=== PATIENT | male | born 1955 | race Caucasian/White ===

== ENCOUNTER 2017-07-18 02:50 | Inpatient (IN) ==
[2017-07-18] MEDS ORDERED: Naloxone 0.4 MG/ML INJ IVP PRN (05:08)
[2017-07-18] MEDS ORDERED: Acetaminophen 325 MG TABLET PO PRN (05:08)
[2017-07-18 05:41] LABS: Basophils % 0.3 %; Hematocrit 27.2 % (37.5-50.1); Hemoglobin 8.5 g/dL (12.9-16.9); Immature Granulocytes % 0.4 % (0-4); Lymphocytes # 0.1 K/mcL (0.6-4.6); Mean Corpuscular HGB Conc 31.3 g/dL (31.6-35.5); Mean Corpuscular Hemoglobin 24.6 pg (28.0-33.3); Mean Corpuscular Volume 78.8 fL (83.0-100.0); Mean Platelet Volume 9.8 fL (9.4-12.4); Monocytes # 0.2 K/mcL (0.0-1.3); Monocytes % 2.5 %; Neutrophils # 6.8 K/mcL (1.6-8.9); Platelet Count 224 K/mcL (140-400); Red Blood Count 3.45 M/mcL (4.19-5.50); Red Cell Distribution Width 22.3 % (11.5-14.5); Segmented Neutrophils % 95.8 %
[2017-07-18] MEDS ORDERED: Vancomycin 1,000 MG in D5% in Water 250 ML IVPB SCH (06:00)
[2017-07-18] MEDS ORDERED: Cefepime HCl 1,000 MG in Water for inj. (sterile) 20 ML 10 ML IVPB SCH (06:00)
[2017-07-18] MEDS ORDERED: *HR* LORazepam 0.5 MG TABLET PO PRN (06:02)
--- NOTE | 2017-07-18 06:07 | Internal Med History&Physical ---
Date of Encounter: 07/18/17 Time of Encounter: 05:30 Assessment and Plan (1) Sepsis Current visit: Yes Status: Acute Will admit the pt into Tele He does meet sepsis criteria with tachycardia, slightly elevated LA, and source of as PNA Will start him on broad spec abx Cefepime + Levaquin + Vanco Duoneb + O2 He did recieved IV fluids in the ER since he does have some crackles will stop IVF for now sent for sputum cx, Strep PNA, Legionella and Resp viral panel Qualifiers: Qualified Code(s): A41.9 - Sepsis, unspecified organism (2) Acute respiratory failure with hypoxia Current visit: Yes Status: Acute try to wean him off the O2 as he tolerates may need home O2 eval cont duoneb ++ Steroids (3) COPD with acute exacerbation Current visit: Yes Status: Acute (4) Pneumonia Current visit: Yes Status: Acute Mostly bacterial Reviewed CXR by myself - showed patchy infiltrates in b/l lower lobes. Inc vascular congestion noticed on broad spec abx Qualifiers: Pneumonia type: due to unspecified organism Laterality: bilateral Lung location: lower lobe of lung Qualified Code(s): J18.9 - Pneumonia, unspecified organism (5) Atrial fibrillation with RVR Current visit: No Status: Acute Reviewed his EKG from [place] [facility] showed Afib with RVR also have flutter waves Repeated EKG here showed NSR with HR 91, few PVC's noticed will get 2 D Echo Will start him on low dose Metoprolol 25 BID His CHADVASC2 score is very high with previous h/o CVA, so started him on Heparin gtt now Will consult Card in AM (6) Elevated troponin Current visit: No Status: Acute slightly elevated mostly demand ischemia cont close monitoring (7) CAD (coronary artery disease) Current visit: Yes Status: Acute will obtain his home med list and resume all home meds Qualifiers: Coronary Disease-Associated Artery/Lesion type: [place] artery Associated angina: without angina Qualified Code(s): I25.10 - Atherosclerotic heart disease of [place] coronary artery without angina pectoris (8) H/O: CVA (cerebrovascular accident) Current visit: Yes Status: Acute (9) Tobacco dependence Current visit: Yes Status: Acute counseled to quit smoking Internal Medicine - H&P: HPI Chief complaint: Cough, SOB Admitted From: Emergency Dept Plans for Post Hospital Care: Home History of present illness: Mr. Carmen is a 62 year old male with known PMH of CAD s/p stents x 7, CVA x2, Esophageal Ca, Throat cancer recently finished chemo therapy, who also had s/p AAA repair, pt presented to [facility] [facility] with four-day history of fever, chills, cough, difficulty breathing. He states he is coughing up purulent sputum. He has had fever and chills. He has had a cough with wheezing. No chest pain. No abdominal pain. He has had body aches. No vomiting or diarrhea. He normally smokes half a pack a day. While he was in the ER, he went into A fib with RVR which got converted to NSR right away with Cardizem bolus + short duration of cardizem gtt + Digoxin. Pt happened to have b/l pneumonia for which he received IV abx and transferred to our hospital for further care. Pt is currently on 2 lit O2, feels little better now. Past Med Surg Social Fam HX - Past Medical History Medical history: aortic aneurysm, cancer, myocardial infarction Psychiatric history: anxiety, depression - Social History Smoking Status: Current every day smoker Packs per day: 2 Smokeless Tobacco Status: Yes (vapor cig.) Alcohol use: occasionally Drug use: none Internal Medicine - H&P: Meds ALPRAZolam [Xanax 0.5 MG Tablet] 0.5 mg PO BID 07/17/17 [History] Amoxicillin 875 mg PO Q12H 07/17/17 [History] Escitalopram [Lexapro] 20 mg PO DAILY 07/17/17 [History] Fludrocortisone Acetate [Florinef] 0.1 mg PO DAILY 07/17/17 [History] Midodrine [ProAmatine] 10 mg PO BID 07/17/17 [History] Ticagrelor [Brilinta] 90 mg PO BID 07/17/17 [History] lamoTRIgine [Lamictal] 25 mg PO TID 07/17/17 [History] 3 Allergy/AdvReac Type Severity Reaction Status Date / Time No Known Allergies Allergy Verified 07/17/17 23:11 All Systems PM: A 10-system review of systems was performed and is negative for pertinent findings except as documented above in the HPI. Review of systems: Reviewed all the systems everything is benign except the systems and symptoms I mentioned in HPI - Constitutional Vitals: Temp Pulse Resp BP Pulse Ox 98.5 F 102 18 116/78 98 07/18/17 04:27 07/18/17 04:27 07/18/17 04:27 07/18/17 04:27 07/18/17 04:27 General appearance: Present: cooperative, mild distress, A&O X 3, answers questions appropriately - Head Head exam: Present: atraumatic, normal inspection - Neck Neck exam general surgery: Present: supple - Respiratory Respiratory exam: Present: decreased breath sounds, respiratory distress (mild) , rhonchi (coarse), wheezes (moderate). Absent: rales - Cardiovascular Cardiovascular exam: Present: RRR, +S1, +S2. Absent: systolic murmur, tachycardia - GI/Abdominal GI/Abdominal exam: Present: normal bowel sounds, soft. Absent: rebound, rigid, tenderness - Extremities Exam Extremities exam: Absent: calf tenderness, pedal edema, tenderness - Back Exam Back exam: Absent: CVA tenderness (L), CVA tenderness (R) - Neurological Exam Neurological exam: Present: alert, oriented X3, no focal deficits - Psychiatric Psychiatric exam: Present: normal affect, normal mood - Skin Skin exam: Absent: rash Internal Med - H&P Results - Labs CBC & Chem 7: 07/18/17 05:19 Labs: Short CBC 07/18/17 Range/Units 05:19 WBC 7.1 (4.3-11.1) K/mcL Hgb 8.5 L (12.9-16.9) g/dL Hct 27.2 L (37.5-50.1) % Plt Count 224 (140-400) K/mcL Cardiac Enzymes 07/18/17 Range/Units 05:19 Troponin I 0.06 H* (< 0.04) ng/mL
[2017-07-18 06:12] LABS: Anisocytosis 3+ (Not Present); Microcytosis Present (Not Present); Platelet Estimate Normal (Normal)
[2017-07-18 06:16] LABS: Alanine Aminotransferase 11 Units/L (7-52); Albumin/Globulin Ratio 0.8 (1.1-2.2); Alkaline Phosphatase 134 Units/L (34-104); Aspartate Amino Transferase 22 Units/L (13-39); BUN/Creatinine Ratio 12 (6-26); Bilirubin,Total 1.2 mg/dL (0.3-1.0); Blood Urea Nitrogen 7 mg/dL (8-23); Calcium 7.8 mg/dL (8.6-10.3); Carbon Dioxide 24 mEq/L (23-29); Chloride 105 mEq/L (98-107); Chol/HDL Ratio 2.2 (0-4.9); Cholesterol 103 mg/dL (< 200); Globulin 3.6 g/dL (2.4-3.5); Glucose 157 mg/dL (70-105); HDL Cholesterol 46 mg/dL (40-59); LDL Cholesterol,Calculated 48 mg/dL (0-99); Magnesium 1.6 mg/dL (1.6-2.6); Osmolality,Calculated 279 (280-300); Potassium 4.2 mEq/L (3.5-5.1); Sodium 134 mEq/L (136-145); Total Protein 6.6 g/dL (6.4-8.9); Triglycerides 46 mg/dL (< 150); eGFR For African Americans > 60 (> 60); eGFR For Non-African Americans > 60 (> 60)
[2017-07-18] MEDS: Ipratropium/Albuterol Neb 3 ML IH SCH ×5 (07:47→23:42)
[2017-07-18] MEDS: MethylPREDNISolone 40 MG/ML VIAL IVP SCH ×3 (08:01→17:52)
[2017-07-18] MEDS: Vancomycin 1,000 MG in D5% in Water 250 ML IVPB SCH ×2 (08:02→19:42)
[2017-07-18] MEDS: Aspirin Enteric Coated 81 MG Tablet PO SCH (08:06)
[2017-07-18] MEDS: Cefepime HCl 1,000 MG in Water for inj. (sterile) 20 ML 10 ML IVP SCH ×2 (08:07→09:31)
[2017-07-18] MEDS: Levofloxacin 500 MG/100 ML 500 MG/100 ML BAG IVPB SCH (08:12)
[2017-07-18 09:18] LABS: Adenovirus Not Detected (Not Detect); Bordetella Pertussis Not Detected (Not Detect); Chlamydophila pneumoniae Not Detected (Not Detect); Coronavirus 229E Not Detected (Not Detect); Coronavirus HKU1 Not Detected (Not Detect); Coronavirus NL63 Not Detected (Not Detect); Coronavirus OC43 Not Detected (Not Detect); Human Metapneumovirus Not Detected (Not Detect); Human Rhinovirus/Enterovirus Not Detected (Not Detect); Influenza A Subtype 2009 H1 Not Detected (Not Detect); Influenza A Untypeable Not Detected (Not Detect); Influenza B Not Detected (Not Detect); Mycoplasma pneumoniae Not Detected (Not Detect); Parainfluenza Virus 1 Not Detected (Not Detect); Parainfluenza Virus 2 Not Detected (Not Detect); Parainfluenza Virus 3 Not Detected (Not Detect); Parainfluenza Virus 4 Not Detected (Not Detect); Respiratory Syncytial Virus Not Detected (Not Detect)
[2017-07-18 09:29] LABS: INR 1.3; Prothrombin Time 13.6 Seconds (9.4-12.1)
[2017-07-18 09:31] LABS: Activated Partial Thrombo Time 31.1 Seconds (26.0-36.0)
[2017-07-18] MEDS: Heparin 25,000 UNIT/500 ML D5W 25,000 UNIT/500 ML BAG IVC SCH (10:09)
[2017-07-18] MEDS: Nicotine 14 MG PATCH.TD24 TD SCH (11:32)
--- NOTE | 2017-07-18 12:26 | Cardiology Consult Note ---
Date of Encounter: 07/18/17 Time of Encounter: 12:06 Assessment and Plan (1) Atrial fibrillation with RVR Current Visit: No Status: Acute ATrial fibrillation with RVR seen on admission. Converted to NSR with frequent PAC. Agree with metoprolol. In regards to anticoagulation, his CHADS VASc score is 4 (HTN, CVA2, CAD). Anticoagulation with coumadin or NOAC would be recommended. He is noted to have significant anemia. He denies bleeding. There are no previous labs to compare. Recommend ordering records from [facility] for review. He is also on brilinta and asa for multiple stents. He does not know when his last stent was placed. May need triple therapy. 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 Recommend checking stool guiac for anemia. (2) Elevated troponin Current Visit: No Status: Acute Mild troponin elevation 0.04, 0.05, 0.06 in the setting of PNA and atrial fibrillation with RVR. Likely demand ischemia. TTE pending. (3) CAD (coronary artery disease) Current Visit: Yes Status: Acute H/o multiple [place] and 7 cardiac stents. Continue asa, brilinta, and bb. Patient unsure why he is not on statin. Noted to have elevated total bilirubin, will hold for now. Qualifiers: Coronary Disease-Associated Artery/Lesion type: [place] artery [place] vs. transplanted heart: [place] heart Associated angina: without angina Qualified Code(s): I25.10 - Atherosclerotic heart disease of [place] coronary artery without angina pectoris Discussion w patient/family: The assessment and plan as outlined above was discussed with the patient and/or family members who expressed understanding and agreement. All questions were answered. Thank you for involving us in the care of your patient. Please call with any questions. History of Present Illness Consult date: 07/18/17 Requesting physician: Adelfo Holcomb Consult reason: afib with RVR Chief complaint: SOB, cough, wheezing History of present illness: Mr. Carmen is a 62 year old male with a past medical history of CAD s/p multiple MA, previous PCI, AAA repair in 2017, HTN, CVA, and COPD who presents with the c/o increasing SOB and cough. He is diagnosed with acute respiratory failure secondary to PNA and sepsis. Cardiology consulted for atrial fibrillation with RVR seen on admission. He is now NSR. Denies previous history of afib. Denies palpitations. As of note, the patient is a poor historian. He states that he moved here from [place], [place]. He was hospitalized at an OSH 2 weeks ago. He reports that his heart stopped and he received CPR. He states that he was also diagnosed with PNA at that time. He left AMA. Past Med Surg Social Fam HX - Past Medical History Attestation: Yes The following information was validated with the patient. Medical history: aortic aneurysm, cancer, COPD, coronary artery disease, hypertension, myocardial infarction Psychiatric history: anxiety, depression - Social History Smoking Status: Current every day smoker Packs per day: 2 Smokeless Tobacco Status: Yes (vapor cig.) Alcohol use: occasionally Drug use: none Medications and Allergies ALPRAZolam [Xanax 0.5 MG Tablet] 0.5 mg PO BID 07/17/17 [History] Escitalopram [Lexapro] 20 mg PO DAILY 07/17/17 [History] Fludrocortisone Acetate [Florinef] 0.1 mg PO DAILY 07/17/17 [History] Midodrine [ProAmatine] 10 mg PO BID 07/17/17 [History] Ticagrelor [Brilinta] 90 mg PO BID 07/17/17 [History] lamoTRIgine [Lamictal] 25 mg PO TID 07/17/17 [History] 3 Allergy/AdvReac Type Severity Reaction Status Date / Time No Known Allergies Allergy Verified 07/17/17 23:11 All Systems Review: A 10-system review of systems was performed and is negative for pertinent findings except as documented above in the HPI. Physical Examination Vital Signs, Last 4 Hours Temp Pulse Resp BP Pulse Ox 07/18/17 11:01 98.0 F 81 17 117/89 100 07/18/17 10:57 16 99 07/18/17 09:28 97 07/18/17 08:14 98.9 F 97 18 119/77 97 General: Conversant, No Apparent Distress HEENT: Atraumatic, Normocephaly, Mucus Membranes Moist Neck: No JVD, Normal carotid pulses Cardiac: Reg Rate and Rhythm, Normal S1 and S2, No Murmur Lungs: Other (Respirations slightly labored with conversation. Course expiratory wheezes. ) Neuro: Alert and responsive, No focal deficits noted Abdomen: Soft, Non-Tender Skin: No rashes noted on visualized skin Musculoskeletal: No Chest Wall Tenderness Extremities: No Clubbing, No Cyanosis, No Edema, Normal Pulses Results 07/18/17 05:19 07/18/17 05:19 Lab Results 07/18/17 07/18/17 07/18/17 05:19 05:19 05:19 WBC 7.1 Hgb 8.5 L Hct 27.2 L Plt Count 224 INR APTT Sodium 134 L Potassium 4.2 D Chloride 105 Carbon Dioxide 24 BUN 7 L Creatinine 0.58 L Glucose 157 H Calcium 7.8 L Magnesium 1.6 Total Bilirubin 1.2 H AST 22 ALT 11 Alkaline Phosphatase 134 H Troponin I 0.06 H* 07/18/17 09:06 WBC Hgb Hct Plt Count INR 1.3 APTT 31.1 Sodium Potassium Chloride Carbon Dioxide BUN Creatinine Glucose Calcium Magnesium Total Bilirubin AST ALT Alkaline Phosphatase Troponin I - Imaging and Cardiology Echo: pending - EKG Interpretation EKG results cardiology: personally reviewed Consult Discharge Plan - Plan Referrals: NONE,PCP [Primary Care Provider] -
[2017-07-18] MEDS ORDERED: *HR* Heparin 5,000 UNIT/ML VIAL IVP PRN (13:25)
[2017-07-18] MEDS ORDERED: *HR* LORazepam 2 MG/ML VIAL IVP PRN ×3 (13:29)
[2017-07-18] MEDS ORDERED: *HR* LORazepam 1 MG TABLET PO PRN (13:48)
[2017-07-18] MEDS: Thiamine (B-1) 100 MG TABLET PO SCH (14:14)
[2017-07-18] MEDS: Folic Acid 1 MG TABLET PO SCH (14:14)
[2017-07-18] MEDS ORDERED: lamoTRIgine 25 MG TABLET PO SCH (15:00)
--- NOTE | 2017-07-18 15:52 | Event Note ---
Date of Encounter: 07/18/17 Time of Encounter: 13:15 Patient is a 62y/o male admitted for sepsis secondary to PNA, COPD with acute exacerbation, Afib with RVR continue empiric abx, systemic steroids, bronchodilators, O2 supplementation, heparin gtt, rate control with BB pt reported history of everyday alcohol use (18-20beers daily). Will closely monitor for alcohol withdrawals. CIWA monitoring, Ativan prn alcohol withdrawal , folate, thiamine supplementation labs and vitals reviewed pt seen and examined at bedside. reports of improvement in respiratory status and saturating well on nasal cannula.
[2017-07-18] MEDS: *HR* Heparin 5,000 UNIT/ML VIAL IVP PRN (16:42)
[2017-07-18] MEDS: Cefepime HCl 2,000 MG in Water for inj. (sterile) 20 ML IVP SCH (17:51)
[2017-07-18] MEDS: lamoTRIgine 25 MG TABLET PO SCH (19:41)
[2017-07-18] MEDS: *HR* Ticagrelor 90 MG TABLET PO SCH (19:41)
[2017-07-19] MEDS: *HR* HYDROcodone/Acet 5/325 mg TABLET PO PRN ×2 (00:23→16:12)
[2017-07-19] MEDS: Ipratropium/Albuterol Neb 3 ML IH SCH ×5 (03:38→20:45)
[2017-07-19] MEDS: Cefepime HCl 2,000 MG in Water for inj. (sterile) 20 ML IVP SCH (05:04)
[2017-07-19] MEDS: MethylPREDNISolone 40 MG/ML VIAL IVP SCH ×2 (05:04→15:55)
[2017-07-19 06:15] LABS: Hematocrit 25.9 % (37.5-50.1); Immature Granulocytes % 0.8 % (0-4); Lymphocytes # 0.3 K/mcL (0.6-4.6); Mean Corpuscular HGB Conc 30.9 g/dL (31.6-35.5); Mean Corpuscular Hemoglobin 24.7 pg (28.0-33.3); Mean Corpuscular Volume 79.9 fL (83.0-100.0); Mean Platelet Volume 9.7 fL (9.4-12.4); Monocytes # 0.6 K/mcL (0.0-1.3); Monocytes % 6.8 %; Neutrophils # 8.3 K/mcL (1.6-8.9); Platelet Count 219 K/mcL (140-400); Red Blood Count 3.24 M/mcL (4.19-5.50); Red Cell Distribution Width 22.2 % (11.5-14.5); Segmented Neutrophils % 89.4 %
[2017-07-19 06:33] LABS: BUN/Creatinine Ratio 23 (6-26); Blood Urea Nitrogen 15 mg/dL (8-23); Calcium 8.3 mg/dL (8.6-10.3); Carbon Dioxide 26 mEq/L (23-29); Chloride 102 mEq/L (98-107); Glucose 145 mg/dL (70-105); Magnesium 1.9 mg/dL (1.6-2.6); Osmolality,Calculated 277 (280-300); Phosphorous 3.1 mg/dL (2.7-4.5); Potassium 4.5 mEq/L (3.5-5.1); Sodium 132 mEq/L (136-145); eGFR For African Americans > 60 (> 60); eGFR For Non-African Americans > 60 (> 60)
[2017-07-19] MEDS: Heparin 25,000 UNIT/500 ML D5W 25,000 UNIT/500 ML BAG IVC SCH ×2 (07:47→10:58)
[2017-07-19] MEDS ORDERED: Aminoglycoside Consult 1 EACH MC ONE (08:04)
[2017-07-19] MEDS: Vancomycin 1,000 MG in D5% in Water 250 ML IVPB SCH (08:26)
[2017-07-19] MEDS: Levofloxacin 500 MG/100 ML 500 MG/100 ML BAG IVPB SCH (08:27)
[2017-07-19] MEDS: Folic Acid 1 MG TABLET PO SCH (08:28)
[2017-07-19] MEDS: lamoTRIgine 25 MG TABLET PO SCH ×2 (08:28→20:26)
[2017-07-19] MEDS: Furosemide 20 MG/2 ML VIAL IVP SCH ×2 (08:28→15:55)
[2017-07-19] MEDS: *HR* Ticagrelor 90 MG TABLET PO SCH ×2 (08:28→20:26)
[2017-07-19] MEDS: Thiamine (B-1) 100 MG TABLET PO SCH (08:28)
[2017-07-19] MEDS: Metoprolol XL (24 HR) Succ 25 MG TAB.ER.24H PO SCH (08:29)
[2017-07-19] MEDS: Aspirin Enteric Coated 81 MG Tablet PO SCH (08:30)
--- NOTE | 2017-07-19 10:12 | Cardiology Progress Note ---
Date of Encounter: 07/19/17 Time of Encounter: 10:10 Assessment and Plan (1) CHF (congestive heart failure) Current Visit: Yes Status: Acute Acute on chronic systolic CHF. TTE reviewed. EF 35% with global systolic dysfunction. There is mild to moderate mitral regurgitation. Small pericardial effusion with no evidence of tampanode. EF previously 45% in 2015. Awaiting records from [facility] from recent hospital stay. Start IV lasix. CXR showed possible pulmonary edema verses PNA. BNP 3235. Strict I&O and daily weights. CHF education. Lopressor changed to toprol. Add aceI. Qualifiers: Heart failure type: systolic Heart failure chronicity: acute on chronic Qualified Code(s): I50.23 - Acute on chronic systolic (congestive) heart failure (2) Atrial fibrillation with RVR Current Visit: No Status: Inactive Atrial fibrillation with RVR seen on admission. Converted to NSR with frequent PAC. Agree with metoprolol. Change to toprol for cardiomyopthy. In regards to anticoagulation, his CHADS VASc score is 4 (HTN, CVA2, CAD). Anticoagulation with coumadin or NOAC would be recommended. He is noted to have significant anemia. Unclear if acute or chronic He denies bleeding. Noted to have history of esophageal cancer per old report. We will defer AC at this time pending possible LHC for cardiomyopathy. He is on DAPT for previous stent. Check stool guiac. (3) Elevated troponin Current Visit: No Status: Inactive Mild troponin elevation 0.04, 0.05, 0.06 in the setting of PNA and atrial fibrillation with RVR. Likely demand ischemia. TTE was completed and shows EF 35% with global systolic dysfunction. Old reports reviewed. 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 We are waiting on records from [facility]. He was seen one month ago at [facility] for cardiac arrest. If EF reduced from previous we will consider LHC once respiratory status improves. Discussed with patient and he agrees. He currently continues to have orthopnea. (4) CAD (coronary artery disease) Current Visit: Yes Status: Acute H/o multiple [place] and 7 cardiac stents. Continue asa, brilinta, and bb. Last LHC record from 2014. He received MED to the [facility] artery. There was moderate non- obstructive CAD remaining. Patient unsure why he is not on statin. Noted to have elevated total bilirubin, will hold for now. Qualifiers: Coronary Disease-Associated Artery/Lesion type: [place] artery [place] vs. transplanted heart: [place] heart Associated angina: without angina Qualified Code(s): I25.10 - Atherosclerotic heart disease of [place] coronary artery without angina pectoris Discussion w patient/family: The assessment and plan as outlined above was discussed with the patient and/or family members who expressed understanding and agreement. All questions were answered. Thank you for involving us in the care of your patient. Please call with any questions. Subjective Principal diagnosis: afib, CHF Interval history: Mr. Romero denies chest pain. Continues to have SOB, orthopnea, and fatigue. Objective Vital Signs, Last 4 Hours Temp Pulse Resp BP Pulse Ox 07/19/17 07:31 97.7 F 88 18 148/94 98 General: Conversant, No Apparent Distress HEENT: Atraumatic, Normocephaly, Mucus Membranes Moist Neck: No JVD, Normal carotid pulses Cardiac: Reg Rate and Rhythm, Normal S1 and S2, No Murmur Lungs: Other (Conversational dyspnea noted, expiratory course wheezes and rhonci throughout. ) Neuro: Alert and responsive, No focal deficits noted Abdomen: Soft, Non-Tender Skin: No rashes noted on visualized skin Musculoskeletal: No Chest Wall Tenderness Extremities: No Clubbing, No Cyanosis, Normal Pulses, Other (1+ edema BLE extremities) Results 07/19/17 05:58 07/19/17 05:58 Lab Results 07/18/17 07/18/17 07/18/17 11:36 15:50 22:29 WBC Hgb Hct Plt Count APTT 54.3 H D 68.9 H Sodium Potassium Chloride Carbon Dioxide BUN Creatinine Glucose Calcium Magnesium Troponin I 0.05 H* B-Natriuretic Peptide 07/19/17 07/19/17 07/19/17 05:58 05:58 05:58 WBC 9.3 Hgb 8.0 L Hct 25.9 L Plt Count 219 APTT 70.9 H Sodium 132 L Potassium 4.5 Chloride 102 Carbon Dioxide 26 BUN 15 Creatinine 0.66 L Glucose 145 H Calcium 8.3 L Magnesium 1.9 Troponin I B-Natriuretic Peptide 07/19/17 05:58 WBC Hgb Hct Plt Count APTT Sodium Potassium Chloride Carbon Dioxide BUN Creatinine Glucose Calcium Magnesium Troponin I B-Natriuretic Peptide 3235 H - Imaging and Cardiology Echo: report reviewed - EKG Interpretation EKG results cardiology: personally reviewed Consult Discharge Plan - Plan Referrals: NONE,PCP [Primary Care Provider] -
[2017-07-19] MEDS: Nicotine 14 MG PATCH.TD24 TD SCH (10:59)
[2017-07-19] MEDS ORDERED: Ipratropium/Albuterol Neb 3 ML IH PRN (11:49)
--- NOTE | 2017-07-19 11:55 | Internal Med Progress Note ---
Date of Encounter: 07/19/17 Time of Encounter: 10:45 - Assessment and plan (1) Acute respiratory failure with hypoxia Current Visit: Yes Status: Acute Assessment and plan: secondary to COPD exacerbation and PNA continue systemic steroids, will change to PO Prednisone in am bronchodilator support O2 supplementation monitor O2 sat, goal O2 sat: 88-92% will de-escalate abx as pt is clinically improving. continue levaquin (Day 2) will continue to closely monitor respiratory status (2) Pneumonia Current Visit: Yes Status: Acute Assessment and plan: as listed above Qualifiers: Pneumonia type: due to unspecified organism Laterality: bilateral Lung location: lower lobe of lung Qualified Code(s): J18.9 - Pneumonia, unspecified organism (3) COPD with acute exacerbation Current Visit: Yes Status: Acute Assessment and plan: as listed above (4) CAD (coronary artery disease) Current Visit: Yes Status: Chronic Assessment and plan: no signs of angina will continue home meds ASA, Brilinta, BB) Qualifiers: Coronary Disease-Associated Artery/Lesion type: [place] artery [place] vs. transplanted heart: [place] heart Associated angina: without angina Qualified Code(s): I25.10 - Atherosclerotic heart disease of [place] coronary artery without angina pectoris (5) CHF (congestive heart failure) Current Visit: Yes Status: Acute Assessment and plan: 2D echo reported LVEF of 35% with severe global LV systolic dysfunction cardiology evaluation appreciated started on lasix 20mg IV BID added Reece inh and BB monitor I/Os daily weights fluid restriction diet Qualifiers: Heart failure type: systolic Heart failure chronicity: acute on chronic Qualified Code(s): I50.23 - Acute on chronic systolic (congestive) heart failure (6) Sepsis Current Visit: Yes Status: Resolved Assessment and plan: secondary to underlying PNA continue management as listed above Qualifiers: Sepsis type: sepsis due to unspecified organism Qualified Code(s): A41.9 - Sepsis, unspecified organism (7) Tobacco dependence Current Visit: Yes Status: Acute Assessment and plan: smoking cessation counseling provided pt willing to quit nicotine supplementation provided (8) Atrial fibrillation with RVR Current Visit: Yes Status: Acute Assessment and plan: Rate controlled with BB anticoagulated with heparin gtt will defer to cardiology for terminal carman AC (9) Alcohol abuse Current Visit: Yes Status: Acute Assessment and plan: alcohol cessation counseling provided will monitor for signs of alcohol withdrawal monitor CIWA score ativan prn etoh withdrawal signs folate, thiamine supplementation (10) DVT prophylaxis Current Visit: Yes Status: Acute Assessment and plan: on heparin gtt (11) Anemia Current Visit: Yes Status: Acute Assessment and plan: H&H low but acceptable no acute bleeding reported given pt requiring prison AC, will obtain stool occult to r/o GI bleed f/u iron studies, ferritin for further evaluation will continue to closely monitor H&H Qualifiers: Anemia type: unspecified type Qualified Code(s): D64.9 - Anemia, unspecified - Subjective Interval history: Patient seen and examined at bedside. Reports of improvement in his respiratory status compared to previous day. Reports of not being on home oxygen and currently remain O2 dependent. 2D echo report noted, noted to have LVEF of 35% with global LV systolic dysfunction Reported of being an everyday smoker and is willing to quit at this time. - Constitutional Vitals: Temp Pulse Resp BP Pulse Ox 98.0 F 89 16 156/94 97 07/19/17 10:51 07/19/17 10:51 07/19/17 11:11 07/19/17 10:51 07/19/17 11:11 General appearance: Present: cooperative, A&O X 3, no acute distress, answers questions appropriately - Head Head exam: Present: atraumatic, normocephalic - Eye Eye exam: Present: conjuntiva pink, sclera anicteric - Respiratory Respiratory exam: Absent: respiratory distress (bilateral expiratory wheezing, scattered rales ) - Cardiovascular Cardiovascular exam: Present: RRR, +S1, +S2. Absent: diastolic murmur, gallop, rubs, systolic murmur - GI/Abdominal GI/Abdominal exam: Present: normal bowel sounds, soft, no peritoneal signs. Absent: distended, tenderness - Extremities Exam Extremities exam: Present: warm, radial pulses palpable and symmetrical. Absent : calf tenderness, pedal edema - Neurological Exam Neurological exam: Present: alert, oriented X3 - Psychiatric Psychiatric exam: Present: normal affect, normal mood Internal Medicine: Result - Labs CBC & Chem 7: 07/19/17 05:58 07/19/17 05:58 Labs: Short CBC 07/19/17 Range/Units 05:58 WBC 9.3 (4.3-11.1) K/mcL Hgb 8.0 L (12.9-16.9) g/dL Hct 25.9 L (37.5-50.1) % Plt Count 219 (140-400) K/mcL Neutrophils # 8.3 (1.6-8.9) K/mcL BMP 07/19/17 05:58 Sodium 132 L Potassium 4.5 Chloride 102 Carbon Dioxide 26 BUN 15 Creatinine 0.66 L Glucose 145 H Calcium 8.3 L Cardiac Enzymes 07/18/17 Range/Units 11:36 Troponin I 0.05 H* (< 0.04) ng/mL - ABG Interpretation ABG results: PT/INR, D-dimer PT 13.6 Seconds (9.4-12.1) H 07/18/17 09:06 - Impressions Impressions Echocardiogram 07/18/17 05:11 Impressions: LVEF 35%. Mildly dilated left ventricle. Gllobal left ventricular systolic dysfunction. Indeterminate diastolic function. Mildly dilated right ventricle with normal function. Mild aortic regurgitation. Mild-moderate mitral regurgitation. Mild tricuspid regurgitation. Moderate-severe pulmonary hypertension. Estimated RVSP is 53-58 mmHg. There is a small pericardial effusion present. There is no echocardiographic evidence of tamponade. Left Ventricular Wall Motion: Rest Echo Findings The apex, apical inferior, mid inferior, basal inferior, apical anterior, mid anterior, basal anterior, apical septal, mid inferior septal, basal inferior septal, apical lateral, mid anterior lateral, basal anterior lateral, mid anterior septal, mid inferior lateral, basal anterior septal and basal inferior lateral ansari were hypokinetic. Findings: Study Quality * Technically adequate exam. ECG Findings * Normal sinus rhythm. Left Ventricle * LVEF 35%. * Mildly dilated left ventricle. * Gllobal left ventricular systolic dysfunction. * Indeterminate diastolic function. Right Ventricle * Mildly dilated right ventricle with normal function. Left Atrium * Moderately dilated left atrium. Right Atrium * Mildly dilated right atrium. Interatrial Septum * Interatrial septum not well evaluated. Aortic Valve * Trileaflet aortic valve. * Mild aortic regurgitation. * No aortic stenosis. Mitral Valve * Normal mitral valve structure. * Mild-moderate mitral regurgitation. * No mitral stenosis. Tricuspid Valve * Normal tricuspid valve structure. * Mild tricuspid regurgitation. * Moderate-severe pulmonary hypertension. * Estimated RVSP is 53-58 mmHg. * Estimated RA pressure is 10-15 mmHg. Pulmonic Valve * Normal pulmonic valve structure and function. * Trace pulmonic regurgitation. Aorta * Normally sized aortic root. Pericardium * There is a small pericardial effusion present. * There is no echocardiographic evidence of tamponade. IVC * The IVC is dilated. * < 50% respiratory change. Pulmonary Artery * Normal visualized portions of the main pulmonary artery. 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
[2017-07-19] MEDS: *HR* Heparin 5,000 UNIT/ML VIAL IVP PRN (15:55)
[2017-07-20] MEDS: Ipratropium/Albuterol Neb 3 ML IH SCH ×6 (00:12→20:59)
[2017-07-20] MEDS: *HR* OxyCODONE Immed Rel 5 MG TABLET PO PRN (05:09)
[2017-07-20 07:35] LABS: Hematocrit 27.4 % (37.5-50.1); Hemoglobin 8.5 g/dL (12.9-16.9); Immature Granulocytes % 0.5 % (0-4); Lymphocytes # 0.3 K/mcL (0.6-4.6); Lymphocytes % 2.8 %; Mean Corpuscular Hemoglobin 24.6 pg (28.0-33.3); Mean Corpuscular Volume 79.2 fL (83.0-100.0); Mean Platelet Volume 10.1 fL (9.4-12.4); Monocytes # 0.5 K/mcL (0.0-1.3); Monocytes % 4.3 %; Neutrophils # 9.9 K/mcL (1.6-8.9); Platelet Count 241 K/mcL (140-400); Red Blood Count 3.46 M/mcL (4.19-5.50); Red Cell Distribution Width 22.1 % (11.5-14.5); Segmented Neutrophils % 92.4 %
[2017-07-20] MEDS: Aspirin Enteric Coated 81 MG Tablet PO SCH (08:02)
[2017-07-20] MEDS: Thiamine (B-1) 100 MG TABLET PO SCH (08:02)
[2017-07-20] MEDS: Folic Acid 1 MG TABLET PO SCH (08:02)
[2017-07-20] MEDS: Metoprolol XL (24 HR) Succ 25 MG TAB.ER.24H PO SCH (08:02)
[2017-07-20] MEDS: predniSONE 20 MG TABLET PO SCH (08:03)
[2017-07-20] MEDS: Nicotine 14 MG PATCH.TD24 TD SCH (08:03)
[2017-07-20] MEDS: Furosemide 20 MG/2 ML VIAL IVP SCH ×2 (08:03→17:53)
[2017-07-20] MEDS: *HR* Ticagrelor 90 MG TABLET PO SCH ×2 (08:03→21:26)
[2017-07-20] MEDS: lamoTRIgine 25 MG TABLET PO SCH ×2 (08:03→21:26)
[2017-07-20] MEDS: Levofloxacin 500 MG/100 ML 500 MG/100 ML BAG IVPB SCH (08:03)
[2017-07-20 08:38] LABS: BUN/Creatinine Ratio 25 (6-26); Blood Urea Nitrogen 15 mg/dL (8-23); Calcium 8.4 mg/dL (8.6-10.3); Carbon Dioxide 30 mEq/L (23-29); Chloride 102 mEq/L (98-107); Ferritin 44 ng/ml (20-250); Glucose 99 mg/dL (70-105); Iron < 10 mcg/dL (65-175); Magnesium 1.7 mg/dL (1.6-2.6); Osmolality,Calculated 283 (280-300); Phosphorous 2.5 mg/dL (2.7-4.5); Potassium 3.2 mEq/L (3.5-5.1); Sodium 136 mEq/L (136-145); Transferrin 296 mg/dL (203-362); eGFR For African Americans > 60 (> 60); eGFR For Non-African Americans > 60 (> 60)
[2017-07-20] MEDS: Heparin 25,000 UNIT/500 ML D5W 25,000 UNIT/500 ML BAG IVC SCH (09:01)
[2017-07-20] MEDS ORDERED: Potassium Phosphate 44 MEQ in 0.9 % Sodium Chloride 250 ML IVPB ONE (09:31)
--- NOTE | 2017-07-20 09:34 | Cardiology Progress Note ---
Date of Encounter: 07/20/17 Time of Encounter: 09:32 Assessment and Plan (1) CHF (congestive heart failure) Current Visit: Yes Status: Acute Acute on chronic systolic CHF. TTE reviewed. EF 35% with global systolic dysfunction. There is mild to moderate mitral regurgitation. Small pericardial effusion with no evidence of tampanode. EF previously 45% in 2015. Awaiting records from [facility] from recent hospital stay. Consider ischemic work-up in the future, likely not during this hospital stay. No acute FL during this stay. Patient seen to have significant anemia, but is stable. Recommend treatment of PNA, CHF and anemia work-up prior to ischemic eval for low EF. Continue IV lasix. CXR showed possible pulmonary edema / PNA. BNP 3235. Strict I&O and daily weights. 1 1703 ml for 24 hours. CHF education. Lopressor changed to toprol. AceI started. Tolerating well. Qualifiers: Heart failure type: systolic Heart failure chronicity: acute on chronic Qualified Code(s): I50.23 - Acute on chronic systolic (congestive) heart failure (2) Atrial fibrillation with RVR Current Visit: No Status: Inactive Atrial fibrillation with RVR seen on admission. Converted to NSR with frequent PAC. No recurrent afib seen. Agree with metoprolol. Change to toprol for cardiomyopthy. In regards to anticoagulation, his CHADS VASc score is 4 (HTN, CVA2, CAD). Anticoagulation with coumadin or NOAC would be recommended. He is noted to have significant anemia. Unclear if acute or chronic He denies bleeding. Noted to have history of esophageal cancer per old report. We will defer AC at this time Until further anemia work-up. He is on DAPT for previous stent and may require triple therapy. Check stool guiac. Change heprin gtt to DVT prophylaxis. (3) Elevated troponin Current Visit: No Status: Inactive Mild troponin elevation 0.04, 0.05, 0.06 in the setting of PNA and atrial fibrillation with RVR. Likely demand ischemia. TTE was completed and shows EF 35% with global systolic dysfunction. Old reports reviewed. EF 45% on [facility] in 2015, No TTE in records from his director utilization management in [place], [place]. We are waiting on records from [facility]. He was seen one month ago at [place] for cardiac arrest. If EF reduced from previous we will consider LHC once respiratory status improves and anemia work-up completed, likely in the out-pt setting Discussed with patient and he agrees. He currently continues to have orthopnea. (4) CAD (coronary artery disease) Current Visit: Yes Status: Chronic H/o multiple FL and 7 cardiac stents per patient. Recently moved here from [place]. Records obtained from his director utilization management. Continue asa, brilinta, and bb. Last C record from 2014. He received MED to the [place] artery. There was moderate non-obstructive CAD remaining. Patient unsure why he is not on statin. Noted to have elevated total bilirubin, will hold for now. Qualifiers: Coronary Disease-Associated Artery/Lesion type: [place] artery [place] vs. transplanted heart: [place] heart Associated angina: without angina Qualified Code(s): I25.10 - Atherosclerotic heart disease of [place] coronary artery without angina pectoris Discussion w patient/family: The assessment and plan as outlined above was discussed with the patient and/or family members who expressed understanding and agreement. All questions were answered. Thank you for involving us in the care of your patient. Please call with any questions. Subjective Principal diagnosis: afib, CHF Interval history: Mr. Romero continues to have SOB, orthopnea, and fatigue. C/o pain in chest area last night relieved with oxycodone. States he had his ribs broken when he had CPR a month ago. Objective Vital Signs, Last 4 Hours Temp Pulse Resp BP Pulse Ox 07/20/17 08:08 16 100 07/20/17 07:45 97.3 F L 89 20 126/70 98 General: Conversant, No Apparent Distress HEENT: Atraumatic, Normocephaly, Mucus Membranes Moist Neck: No JVD, Normal carotid pulses Cardiac: Reg Rate and Rhythm, Normal S1 and S2, No Murmur Lungs: Other (rhonci scattered throughout. ) Neuro: Alert and responsive, No focal deficits noted Abdomen: Soft, Non-Tender Skin: No rashes noted on visualized skin Musculoskeletal: No Chest Wall Tenderness Extremities: Other (1+ edema in BLE ) Results 07/20/17 06:37 07/20/17 06:37 Lab Results 07/19/17 07/19/17 07/20/17 13:00 22:59 06:37 WBC 10.7 Hgb 8.5 L Hct 27.4 L Plt Count 241 APTT 51.1 H 82.4 H D Sodium Potassium Chloride Carbon Dioxide BUN Creatinine Glucose Calcium Magnesium 07/20/17 07/20/17 06:37 06:37 WBC Hgb Hct Plt Count APTT 69.4 H Sodium 136 Potassium 3.2 L Chloride 102 Carbon Dioxide 30 H BUN 15 Creatinine 0.59 L Glucose 99 Calcium 8.4 L Magnesium 1.7 - Imaging and Cardiology Echo: report reviewed Consult Discharge Plan - Plan Referrals: NONE,PCP [Primary Care Provider] - (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
--- NOTE | 2017-07-20 15:41 | Internal Med Progress Note ---
Date of Encounter: 07/20/17 Time of Encounter: 14:55 - Assessment and plan (1) Acute respiratory failure with hypoxia Current Visit: Yes Status: Acute Assessment and plan: secondary to COPD exacerbation and PNA continue PO Prednisone (Day 1) bronchodilator support O2 supplementation monitor O2 sat, goal O2 sat: 88-92% continue levaquin (Day 3) will continue to closely monitor respiratory status (2) Pneumonia Current Visit: Yes Status: Acute Assessment and plan: as listed above Qualifiers: Pneumonia type: due to unspecified organism Laterality: bilateral Lung location: lower lobe of lung Qualified Code(s): J18.9 - Pneumonia, unspecified organism (3) COPD with acute exacerbation Current Visit: Yes Status: Acute Assessment and plan: as listed above (4) CAD (coronary artery disease) Current Visit: Yes Status: Chronic Assessment and plan: no signs of angina will continue home meds ASA, Brilinta, BB) Qualifiers: Coronary Disease-Associated Artery/Lesion type: [place] artery [place] vs. transplanted heart: [place] heart Associated angina: without angina Qualified Code(s): I25.10 - Atherosclerotic heart disease of [place] coronary artery without angina pectoris (5) CHF (congestive heart failure) Current Visit: Yes Status: Acute Assessment and plan: 2D echo reported LVEF of 35% with severe global LV systolic dysfunction cardiology evaluation appreciated continue lasix 20mg IV BID added Reece inh and BB monitor I/Os daily weights fluid restriction diet Qualifiers: Heart failure type: systolic Heart failure chronicity: acute on chronic Qualified Code(s): I50.23 - Acute on chronic systolic (congestive) heart failure (6) Sepsis Current Visit: Yes Status: Resolved Assessment and plan: secondary to underlying PNA continue management as listed above Qualifiers: Sepsis type: sepsis due to unspecified organism Qualified Code(s): A41.9 - Sepsis, unspecified organism (7) Tobacco dependence Current Visit: Yes Status: Acute Assessment and plan: smoking cessation counseling provided pt willing to quit nicotine supplementation provided (8) Atrial fibrillation with RVR Current Visit: Yes Status: Acute Assessment and plan: Rate controlled with BB noted to be anemic need full anemia work up prior to initiating jail AC awaiting stool occult iron studies consistent with iron deficiency anemia, will start ferrous sulfate supplementation (9) Alcohol abuse Current Visit: Yes Status: Chronic Assessment and plan: alcohol cessation counseling provided will monitor for signs of alcohol withdrawal monitor CIWA score ativan prn etoh withdrawal signs folate, thiamine supplementation (10) DVT prophylaxis Current Visit: Yes Status: Acute Assessment and plan: heparin SQ (11) Anemia Current Visit: Yes Status: Acute Assessment and plan: H&H low but acceptable no acute bleeding reported given pt requiring technical translator AC, will obtain stool occult to r/o GI bleed iron studies consistent with iron deficiency anemia will start iron supplementation will continue to closely monitor H&H Qualifiers: Anemia type: unspecified type Qualified Code(s): D64.9 - Anemia, unspecified (12) Electrolyte abnormality Current Visit: Yes Status: Acute Assessment and plan: Hypokalemia and Hypophosphatemia K and PHos supplemented continue to monitor electrolytes and replace as needed - Subjective Interval history: Patient seen and examined at bedside. Reports of improvement in his respiratory status compared to previous day. Reports of not being on home oxygen and currently remain O2 dependent. States even with minimal exertion he is significantly short of breath. Pt will need O2 qualification testing prior to discharge 2D echo report noted, noted to have LVEF of 35% with global LV systolic dysfunction Reported of being an everyday smoker and is willing to quit at this time. - Constitutional Vitals: Temp Pulse Resp BP Pulse Ox 98.2 F 88 16 127/73 98 07/20/17 11:37 07/20/17 11:37 07/20/17 11:49 07/20/17 11:37 07/20/17 11:49 General appearance: Present: cooperative, A&O X 3, no acute distress, answers questions appropriately - Head Head exam: Present: atraumatic, normocephalic - Eye Eye exam: Present: conjuntiva pink, sclera anicteric - Respiratory Respiratory exam: Absent: respiratory distress, wheezes (scattered rales) - Cardiovascular Cardiovascular exam: Present: RRR, +S1, +S2. Absent: diastolic murmur, gallop, rubs, systolic murmur - GI/Abdominal GI/Abdominal exam: Present: normal bowel sounds, soft, no peritoneal signs. Absent: distended, tenderness - Extremities Exam Extremities exam: Present: warm, radial pulses palpable and symmetrical. Absent : calf tenderness - Neurological Exam Neurological exam: Present: alert, oriented X3 - Psychiatric Psychiatric exam: Present: normal affect, normal mood Internal Medicine: Result - Labs CBC & Chem 7: 07/20/17 06:37 07/20/17 06:37 Labs: Short CBC 07/20/17 Range/Units 06:37 WBC 10.7 (4.3-11.1) K/mcL Hgb 8.5 L (12.9-16.9) g/dL Hct 27.4 L (37.5-50.1) % Plt Count 241 (140-400) K/mcL Neutrophils # 9.9 H (1.6-8.9) K/mcL BMP 07/20/17 06:37 Sodium 136 Potassium 3.2 L Chloride 102 Carbon Dioxide 30 H BUN 15 Creatinine 0.59 L Glucose 99 Calcium 8.4 L - ABG Interpretation ABG results: PT/INR, D-dimer PT 13.6 Seconds (9.4-12.1) H 07/18/17 09:06 Consult Discharge Plan - Plan Referrals: NONE,PCP [Primary Care Provider] - (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
[2017-07-20] MEDS: *HR* Heparin 5,000 UNIT/ML VIAL SQ SCH (17:53)
[2017-07-21] MEDS: Ipratropium/Albuterol Neb 3 ML IH SCH ×7 (01:02→23:20)
[2017-07-21] MEDS: *HR* Heparin 5,000 UNIT/ML VIAL SQ SCH ×2 (06:35→17:09)
[2017-07-21 08:37] LABS: Hematocrit 27.9 % (37.5-50.1); Hemoglobin 8.6 g/dL (12.9-16.9); Immature Granulocytes % 0.4 % (0-4); Lymphocytes # 0.4 K/mcL (0.6-4.6); Lymphocytes % 7.4 %; Mean Corpuscular HGB Conc 30.8 g/dL (31.6-35.5); Mean Corpuscular Hemoglobin 24.5 pg (28.0-33.3); Mean Corpuscular Volume 79.5 fL (83.0-100.0); Mean Platelet Volume 9.8 fL (9.4-12.4); Monocytes # 0.5 K/mcL (0.0-1.3); Monocytes % 9.6 %; Neutrophils # 4.6 K/mcL (1.6-8.9); Platelet Count 224 K/mcL (140-400); Red Blood Count 3.51 M/mcL (4.19-5.50); Red Cell Distribution Width 22.3 % (11.5-14.5); Segmented Neutrophils % 82.6 %
[2017-07-21 08:59] LABS: BUN/Creatinine Ratio 25 (6-26); Blood Urea Nitrogen 16 mg/dL (8-23); Calcium 8.3 mg/dL (8.6-10.3); Carbon Dioxide 36 mEq/L (23-29); Chloride 102 mEq/L (98-107); Glucose 89 mg/dL (70-105); Magnesium 1.7 mg/dL (1.6-2.6); Osmolality,Calculated 291 (280-300); Phosphorous 2.7 mg/dL (2.7-4.5); Potassium 3.5 mEq/L (3.5-5.1); Sodium 140 mEq/L (136-145); eGFR For African Americans > 60 (> 60); eGFR For Non-African Americans > 60 (> 60)
[2017-07-21] MEDS: Metoprolol XL (24 HR) Succ 25 MG TAB.ER.24H PO SCH (09:10)
[2017-07-21] MEDS: levoFLOXacin 500 MG TABLET PO SCH (09:10)
[2017-07-21] MEDS: Aspirin Enteric Coated 81 MG Tablet PO SCH (09:10)
[2017-07-21] MEDS: predniSONE 20 MG TABLET PO SCH (09:10)
[2017-07-21] MEDS: Furosemide 20 MG/2 ML VIAL IVP SCH ×2 (09:11→16:05)
[2017-07-21] MEDS: Thiamine (B-1) 100 MG TABLET PO SCH (09:11)
[2017-07-21] MEDS: Folic Acid 1 MG TABLET PO SCH (09:11)
[2017-07-21] MEDS: *HR* Ticagrelor 90 MG TABLET PO SCH ×2 (09:11→20:48)
[2017-07-21] MEDS: lamoTRIgine 25 MG TABLET PO SCH ×2 (09:11→20:48)
[2017-07-21] MEDS: Nicotine 14 MG PATCH.TD24 TD SCH (09:11)
--- NOTE | 2017-07-21 13:35 | Internal Med Progress Note ---
Date of Encounter: 07/21/17 Time of Encounter: 12:45 - Assessment and plan (1) Acute respiratory failure with hypoxia Current Visit: Yes Status: Acute Assessment and plan: secondary to COPD exacerbation and PNA continue PO Prednisone (Day 2) bronchodilator support O2 supplementation monitor O2 sat, goal O2 sat: 88-92% continue levaquin (Day 4) will continue to closely monitor respiratory status (2) Pneumonia Current Visit: Yes Status: Acute Assessment and plan: as listed above Qualifiers: Pneumonia type: due to unspecified organism Laterality: bilateral Lung location: lower lobe of lung Qualified Code(s): J18.9 - Pneumonia, unspecified organism (3) COPD with acute exacerbation Current Visit: Yes Status: Acute Assessment and plan: as listed above (4) CAD (coronary artery disease) Current Visit: Yes Status: Chronic Assessment and plan: no signs of angina will continue home meds ASA, Brilinta, BB) Qualifiers: Coronary Disease-Associated Artery/Lesion type: [place] artery [place] vs. transplanted heart: [place] heart Associated angina: without angina Qualified Code(s): I25.10 - Atherosclerotic heart disease of [place] coronary artery without angina pectoris (5) CHF (congestive heart failure) Current Visit: Yes Status: Acute Assessment and plan: 2D echo reported LVEF of 35% with severe global LV systolic dysfunction cardiology evaluation appreciated will d/c IV lasix and start Lasix 40mg PO BID continue Reece inh and BB monitor I/Os daily weights fluid restriction diet Qualifiers: Heart failure type: systolic Heart failure chronicity: acute on chronic Qualified Code(s): I50.23 - Acute on chronic systolic (congestive) heart failure (6) Sepsis Current Visit: Yes Status: Resolved Assessment and plan: secondary to underlying PNA continue management as listed above Qualifiers: Sepsis type: sepsis due to unspecified organism Qualified Code(s): A41.9 - Sepsis, unspecified organism (7) Tobacco dependence Current Visit: Yes Status: Acute Assessment and plan: smoking cessation counseling provided pt willing to quit nicotine supplementation provided (8) Atrial fibrillation with RVR Current Visit: Yes Status: Acute Assessment and plan: Rate controlled with BB noted to be anemic stool occult negative iron studies consistent with iron deficiency anemia, continue ferrous sulfate supplementation will defer to cardiology in regards to initiation of sign writer hand AC (9) Alcohol abuse Current Visit: Yes Status: Chronic Assessment and plan: alcohol cessation counseling provided will monitor for signs of alcohol withdrawal monitor CIWA score ativan prn etoh withdrawal signs folate, thiamine supplementation (10) DVT prophylaxis Current Visit: Yes Status: Acute Assessment and plan: heparin SQ (11) Anemia Current Visit: Yes Status: Acute Assessment and plan: H&H low but acceptable no acute bleeding reported stool occult negative iron studies consistent with iron deficiency anemia continue iron supplementation will continue to closely monitor H&H Qualifiers: Anemia type: unspecified type Qualified Code(s): D64.9 - Anemia, unspecified (12) Electrolyte abnormality Current Visit: Yes Status: Resolved Assessment and plan: continue to monitor electrolytes and replace as needed - Subjective Interval history: Patient seen and examined at bedside. States he continues to get short of breath with minimal movement. Awaiting home O2 qualification testing. Pt reports of persistent cough and states he has diffuse chest pain when he coughs. 2D echo report noted, noted to have LVEF of 35% with global LV systolic dysfunction Reported of being an everyday smoker and is willing to quit at this time. - Constitutional Vitals: Temp Pulse Resp BP Pulse Ox 98.4 F 87 15 114/41 94 07/21/17 11:50 07/21/17 11:50 07/21/17 11:50 07/21/17 11:50 07/21/17 11:50 General appearance: Present: cooperative, A&O X 3, no acute distress, answers questions appropriately - Head Head exam: Present: atraumatic, normocephalic - Eye Eye exam: Present: conjuntiva pink, sclera anicteric - Respiratory Respiratory exam: Absent: respiratory distress, wheezes (minimal bibasilar rales , equal air entry bilaterally ) - Cardiovascular Cardiovascular exam: Present: RRR, +S1, +S2. Absent: diastolic murmur, gallop, rubs, systolic murmur - GI/Abdominal GI/Abdominal exam: Present: normal bowel sounds, soft, no peritoneal signs. Absent: distended, tenderness - Extremities Exam Extremities exam: Present: warm, radial pulses palpable and symmetrical. Absent : calf tenderness, pedal edema - Neurological Exam Neurological exam: Present: alert, oriented X3 - Psychiatric Psychiatric exam: Present: normal affect, normal mood Internal Medicine: Result - Labs CBC & Chem 7: 07/21/17 07:55 07/21/17 07:55 Labs: Short CBC 07/21/17 Range/Units 07:55 WBC 5.5 (4.3-11.1) K/mcL Hgb 8.6 L (12.9-16.9) g/dL Hct 27.9 L (37.5-50.1) % Plt Count 224 (140-400) K/mcL Neutrophils # 4.6 (1.6-8.9) K/mcL BMP 07/21/17 07:55 Sodium 140 Potassium 3.5 Chloride 102 Carbon Dioxide 36 H BUN 16 Creatinine 0.64 L Glucose 89 Calcium 8.3 L - ABG Interpretation ABG results: PT/INR, D-dimer PT 13.6 Seconds (9.4-12.1) H 07/18/17 09:06 Consult Discharge Plan - Plan Referrals: NONE,PCP [Primary Care Provider] - (patient does want PCP, 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
[2017-07-21] MEDS: GuaiFENesin/Codeine Oral Soln 5 ML UDC PO PRN (17:10)
[2017-07-22] MEDS: Ipratropium/Albuterol Neb 3 ML IH SCH ×5 (03:41→20:41)
[2017-07-22 05:24] LABS: Hematocrit 27.5 % (37.5-50.1); Hemoglobin 8.3 g/dL (12.9-16.9); Immature Granulocytes % 0.4 % (0-4); Lymphocytes # 0.4 K/mcL (0.6-4.6); Lymphocytes % 8.2 %; Mean Corpuscular HGB Conc 30.2 g/dL (31.6-35.5); Mean Corpuscular Volume 79.5 fL (83.0-100.0); Mean Platelet Volume 9.9 fL (9.4-12.4); Monocytes # 0.6 K/mcL (0.0-1.3); Monocytes % 12.3 %; Neutrophils # 3.7 K/mcL (1.6-8.9); Platelet Count 217 K/mcL (140-400); Red Blood Count 3.46 M/mcL (4.19-5.50); Red Cell Distribution Width 21.8 % (11.5-14.5); Segmented Neutrophils % 79.1 %
[2017-07-22] MEDS: *HR* Heparin 5,000 UNIT/ML VIAL SQ SCH ×2 (05:31→17:36)
[2017-07-22] MEDS: GuaiFENesin/Codeine Oral Soln 5 ML UDC PO PRN ×2 (05:31→17:41)
[2017-07-22 05:45] LABS: Calcium 8.4 mg/dL (8.6-10.3); Carbon Dioxide 33 mEq/L (23-29); Chloride 98 mEq/L (98-107); Magnesium 1.7 mg/dL (1.6-2.6); Potassium 2.7 mEq/L (3.5-5.1); Sodium 137 mEq/L (136-145)
[2017-07-22 05:51] LABS: BUN/Creatinine Ratio 24 (6-26); Blood Urea Nitrogen 16 mg/dL (8-23); Glucose 146 mg/dL (70-105); Osmolality,Calculated 288 (280-300); Phosphorous 2.2 mg/dL (2.7-4.5); eGFR For African Americans > 60 (> 60); eGFR For Non-African Americans > 60 (> 60)
[2017-07-22] MEDS: lamoTRIgine 25 MG TABLET PO SCH ×2 (08:38→19:50)
[2017-07-22] MEDS: Folic Acid 1 MG TABLET PO SCH (08:38)
[2017-07-22] MEDS: predniSONE 20 MG TABLET PO SCH (08:38)
[2017-07-22] MEDS: *HR* Ticagrelor 90 MG TABLET PO SCH ×2 (08:38→19:50)
[2017-07-22] MEDS: Metoprolol XL (24 HR) Succ 25 MG TAB.ER.24H PO SCH (08:39)
[2017-07-22] MEDS: levoFLOXacin 500 MG TABLET PO SCH (08:39)
[2017-07-22] MEDS: Furosemide 40 MG TABLET PO SCH ×2 (08:39→17:36)
[2017-07-22] MEDS: Nicotine 14 MG PATCH.TD24 TD SCH (08:39)
[2017-07-22] MEDS: Thiamine (B-1) 100 MG TABLET PO SCH (08:39)
[2017-07-22] MEDS: Aspirin Enteric Coated 81 MG Tablet PO SCH (08:39)
[2017-07-22] MEDS ORDERED: Potassium Phosphate 44 MEQ in 0.9 % Sodium Chloride 250 ML IVPB ONE ×2 (08:40→10:00)
[2017-07-22] MEDS ORDERED: Albuterol 2.5 MG/3 ML NEBULIZER IH PRN (12:55)
--- NOTE | 2017-07-22 15:56 | Internal Med Progress Note ---
Date of Encounter: 07/22/17 Time of Encounter: 14:30 - Assessment and plan (1) Acute respiratory failure with hypoxia Current Visit: Yes Status: Acute Assessment and plan: secondary to COPD exacerbation and PNA continue PO Prednisone (Day 3) bronchodilator support O2 supplementation monitor O2 sat, goal O2 sat: 88-92% continue levaquin (Day 5) will continue to closely monitor respiratory status (2) Pneumonia Current Visit: Yes Status: Acute Assessment and plan: as listed above Qualifiers: Pneumonia type: due to unspecified organism Laterality: bilateral Lung location: lower lobe of lung Qualified Code(s): J18.9 - Pneumonia, unspecified organism (3) COPD with acute exacerbation Current Visit: Yes Status: Acute Assessment and plan: as listed above (4) CAD (coronary artery disease) Current Visit: Yes Status: Chronic Assessment and plan: no signs of angina will continue home meds ASA, Brilinta, BB) Qualifiers: Coronary Disease-Associated Artery/Lesion type: [place] artery [place] vs. transplanted heart: [place] heart Associated angina: without angina Qualified Code(s): I25.10 - Atherosclerotic heart disease of [place] coronary artery without angina pectoris (5) CHF (congestive heart failure) Current Visit: Yes Status: Acute Assessment and plan: 2D echo reported LVEF of 35% with severe global LV systolic dysfunction cardiology evaluation appreciated Lasix 40mg PO BID continue Reece inh and BB monitor I/Os daily weights fluid restriction diet Qualifiers: Heart failure type: systolic Heart failure chronicity: acute on chronic Qualified Code(s): I50.23 - Acute on chronic systolic (congestive) heart failure (6) Sepsis Current Visit: Yes Status: Resolved Assessment and plan: secondary to underlying PNA continue management as listed above Qualifiers: Sepsis type: sepsis due to unspecified organism Qualified Code(s): A41.9 - Sepsis, unspecified organism (7) Tobacco dependence Current Visit: Yes Status: Acute Assessment and plan: smoking cessation counseling provided pt willing to quit nicotine supplementation provided (8) Atrial fibrillation with RVR Current Visit: Yes Status: Acute Assessment and plan: Rate controlled with BB noted to be anemic stool occult negative iron studies consistent with iron deficiency anemia, continue ferrous sulfate supplementation will defer to cardiology in regards to initiation of director long term care AC (9) Alcohol abuse Current Visit: Yes Status: Chronic Assessment and plan: alcohol cessation counseling provided will monitor for signs of alcohol withdrawal monitor CIWA score ativan prn etoh withdrawal signs folate, thiamine supplementation (10) DVT prophylaxis Current Visit: Yes Status: Acute Assessment and plan: heparin SQ (11) Anemia Current Visit: Yes Status: Acute Assessment and plan: H&H low but acceptable no acute bleeding reported stool occult negative iron studies consistent with iron deficiency anemia continue iron supplementation will continue to closely monitor H&H Qualifiers: Anemia type: unspecified type Qualified Code(s): D64.9 - Anemia, unspecified (12) Electrolyte abnormality Current Visit: Yes Status: Resolved Assessment and plan: Hypokalemia, Hypophosphatemia K and PHos supplemented continue to monitor electrolytes and replace as needed - Subjective Interval history: Patient seen and examined at bedside. 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 Absent: diastolic murmur, gallop, rubs, systolic murmur - GI/Abdominal GI/Abdominal exam: Present: normal bowel sounds, soft, no peritoneal signs. Absent: distended, tenderness - Extremities Exam Extremities exam: Present: warm, radial pulses palpable and symmetrical. Absent : calf tenderness - Neurological Exam Neurological exam: Present: alert, oriented X3 Internal Medicine: Result - Labs CBC & Chem 7: 07/22/17 05:01 07/22/17 05:01 Labs: Short CBC 07/22/17 Range/Units 05:01 WBC 4.6 (4.3-11.1) K/mcL Hgb 8.3 L (12.9-16.9) g/dL Hct 27.5 L (37.5-50.1) % Plt Count 217 (140-400) K/mcL Neutrophils # 3.7 (1.6-8.9) K/mcL BMP 07/22/17 05:01 Sodium 137 Potassium 2.7 L Chloride 98 Carbon Dioxide 33 H BUN 16 Creatinine 0.67 L Glucose 146 H Calcium 8.4 L - ABG Interpretation ABG results: PT/INR, D-dimer PT 13.6 Seconds (9.4-12.1) H 07/18/17 09:06 Consult Discharge Plan - Plan Referrals: NONE,PCP [Primary Care Provider] - (patient does want PCP, psychiatric np plan staying in the city)
--- NOTE | 2017-07-22 16:29 | Electrocardiograph Report ---
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
[2017-07-23] MEDS: Ipratropium/Albuterol Neb 3 ML IH SCH ×6 (00:15→20:51)
[2017-07-23] MEDS: *HR* HYDROcodone/Acet 5/325 mg TABLET PO PRN (02:11)
[2017-07-23 05:28] LABS: Hematocrit 27.8 % (37.5-50.1); Hemoglobin 8.6 g/dL (12.9-16.9); Immature Granulocytes % 0.6 % (0-4); Lymphocytes # 0.5 K/mcL (0.6-4.6); Lymphocytes % 10.3 %; Mean Corpuscular HGB Conc 30.9 g/dL (31.6-35.5); Mean Corpuscular Hemoglobin 24.5 pg (28.0-33.3); Mean Corpuscular Volume 79.2 fL (83.0-100.0); Monocytes # 0.8 K/mcL (0.0-1.3); Monocytes % 14.5 %; Neutrophils # 3.9 K/mcL (1.6-8.9); Platelet Count 229 K/mcL (140-400); Red Blood Count 3.51 M/mcL (4.19-5.50); Red Cell Distribution Width 21.9 % (11.5-14.5); Segmented Neutrophils % 74.6 %
[2017-07-23] MEDS: *HR* Heparin 5,000 UNIT/ML VIAL SQ SCH ×2 (05:36→17:15)
[2017-07-23] MEDS: GuaiFENesin/Codeine Oral Soln 5 ML UDC PO PRN ×2 (05:43→14:26)
[2017-07-23 05:58] LABS: BUN/Creatinine Ratio 25 (6-26); Blood Urea Nitrogen 17 mg/dL (8-23); Calcium 8.3 mg/dL (8.6-10.3); Carbon Dioxide 37 mEq/L (23-29); Chloride 99 mEq/L (98-107); Glucose 83 mg/dL (70-105); Magnesium 1.7 mg/dL (1.6-2.6); Osmolality,Calculated 293 (280-300); Phosphorous 2.4 mg/dL (2.7-4.5); Potassium 2.8 mEq/L (3.5-5.1); Sodium 141 mEq/L (136-145); eGFR For African Americans > 60 (> 60); eGFR For Non-African Americans > 60 (> 60)
[2017-07-23] MEDS: Thiamine (B-1) 100 MG TABLET PO SCH (08:37)
[2017-07-23] MEDS: predniSONE 20 MG TABLET PO SCH (08:37)
[2017-07-23] MEDS: Aspirin Enteric Coated 81 MG Tablet PO SCH (08:37)
[2017-07-23] MEDS: *HR* Ticagrelor 90 MG TABLET PO SCH ×2 (08:37→20:12)
[2017-07-23] MEDS: Metoprolol XL (24 HR) Succ 25 MG TAB.ER.24H PO SCH (08:37)
[2017-07-23] MEDS: Folic Acid 1 MG TABLET PO SCH (08:37)
[2017-07-23] MEDS: Nicotine 14 MG PATCH.TD24 TD SCH (08:37)
[2017-07-23] MEDS: levoFLOXacin 500 MG TABLET PO SCH (08:38)
[2017-07-23] MEDS: lamoTRIgine 25 MG TABLET PO SCH ×2 (08:38→20:12)
[2017-07-23] MEDS: Furosemide 40 MG TABLET PO SCH ×2 (08:38→17:15)
[2017-07-23] MEDS ORDERED: Potassium Chloride 40 MEQ, Lidocaine 1% 2 ML in D5% in Water 500 ML IVPB ONE (08:40)
--- NOTE | 2017-07-23 12:16 | Internal Med Progress Note ---
Date of Encounter: 07/23/17 Time of Encounter: 12:14 - Assessment and plan (1) Acute respiratory failure with hypoxia Current Visit: Yes Status: Acute Assessment and plan: secondary to COPD exacerbation and PNA continue PO Prednisone (Day 4) bronchodilator support O2 supplementation monitor O2 sat, goal O2 sat: 88-92% continue levaquin (Day 6/7) will continue to closely monitor respiratory status (2) Pneumonia Current Visit: Yes Status: Acute Assessment and plan: as listed above Qualifiers: Pneumonia type: due to unspecified organism Laterality: bilateral Lung location: lower lobe of lung Qualified Code(s): J18.9 - Pneumonia, unspecified organism (3) COPD with acute exacerbation Current Visit: Yes Status: Acute Assessment and plan: as listed above (4) CAD (coronary artery disease) Current Visit: Yes Status: Chronic Assessment and plan: no signs of angina will continue home meds ASA, Brilinta, BB) Qualifiers: Coronary Disease-Associated Artery/Lesion type: [place] artery [place] vs. transplanted heart: [place] heart Associated angina: without angina Qualified Code(s): I25.10 - Atherosclerotic heart disease of [place] coronary artery without angina pectoris (5) CHF (congestive heart failure) Current Visit: Yes Status: Acute Assessment and plan: 2D echo reported LVEF of 35% with severe global LV systolic dysfunction cardiology evaluation appreciated Lasix 40mg PO BID continue Reece inh and BB monitor I/Os daily weights fluid restriction diet Qualifiers: Heart failure type: systolic Heart failure chronicity: acute on chronic Qualified Code(s): I50.23 - Acute on chronic systolic (congestive) heart failure (6) Sepsis Current Visit: Yes Status: Resolved Assessment and plan: secondary to underlying PNA continue management as listed above Qualifiers: Sepsis type: sepsis due to unspecified organism Qualified Code(s): A41.9 - Sepsis, unspecified organism (7) Tobacco dependence Current Visit: Yes Status: Acute Assessment and plan: smoking cessation counseling provided pt willing to quit nicotine supplementation provided (8) Atrial fibrillation with RVR Current Visit: Yes Status: Acute Assessment and plan: Rate controlled with BB noted to be anemic stool occult negative iron studies consistent with iron deficiency anemia, continue ferrous sulfate supplementation will defer to cardiology in regards to initiation of assisted AC (9) Alcohol abuse Current Visit: Yes Status: Chronic Assessment and plan: alcohol cessation counseling provided will monitor for signs of alcohol withdrawal monitor CIWA score ativan prn etoh withdrawal signs folate, thiamine supplementation (10) DVT prophylaxis Current Visit: Yes Status: Acute Assessment and plan: heparin SQ (11) Anemia Current Visit: Yes Status: Acute Assessment and plan: H&H low but acceptable no acute bleeding reported stool occult negative iron studies consistent with iron deficiency anemia continue iron supplementation will continue to closely monitor H&H Qualifiers: Anemia type: unspecified type Qualified Code(s): D64.9 - Anemia, unspecified (12) Electrolyte abnormality Current Visit: Yes Status: Acute Assessment and plan: Hypokalemi K supplemented continue to monitor electrolytes and replace as needed - Subjective Interval history: Patient seen and examined at bedside. Resting in bed and saturating well on nasal cannula Pt qualified for home oxygen remains very weak, awaiting PT/OT evaluation Discharge pending PT/OT evaluation as pt is requiring assistance to get out of bed and has been only able to get to the bedside commode social work supervisor consulted for arrangement of home oxygen - Constitutional Vitals: Temp Pulse Resp BP Pulse Ox 97.5 F L 77 18 102/67 99 07/23/17 11:07 07/23/17 11:07 07/23/17 11:50 07/23/17 11:07 07/23/17 11:50 General appearance: Present: cooperative, A&O X 3, no acute distress, answers questions appropriately - Head Head exam: Present: atraumatic, normocephalic - Eye Eye exam: Present: conjuntiva pink, sclera anicteric - Respiratory Respiratory exam: Absent: respiratory distress, wheezes - Cardiovascular Cardiovascular exam: Present: RRR, +S1, +S2. Absent: diastolic murmur, gallop, rubs, systolic murmur - GI/Abdominal GI/Abdominal exam: Present: normal bowel sounds, soft, no peritoneal signs. Absent: distended, tenderness - Extremities Exam Extremities exam: Present: warm, radial pulses palpable and symmetrical. Absent : calf tenderness - Neurological Exam Neurological exam: Present: alert, oriented X3 Internal Medicine: Result - Labs CBC & Chem 7: 07/23/17 04:53 07/23/17 04:53 Labs: Short CBC 07/23/17 Range/Units 04:53 WBC 5.2 (4.3-11.1) K/mcL Hgb 8.6 L (12.9-16.9) g/dL Hct 27.8 L (37.5-50.1) % Plt Count 229 (140-400) K/mcL Neutrophils # 3.9 (1.6-8.9) K/mcL BMP 07/23/17 04:53 Sodium 141 Potassium 2.8 L Chloride 99 Carbon Dioxide 37 H BUN 17 Creatinine 0.67 L Glucose 83 Calcium 8.3 L - ABG Interpretation ABG results: PT/INR, D-dimer PT 13.6 Seconds (9.4-12.1) H 07/18/17 09:06 Consult Discharge Plan - Plan Referrals: NONE,PCP [Primary Care Provider] - (patient does want PCP, no plan staying in the city)
[2017-07-23] MEDS ORDERED: ALPRAZolam 0.5 MG TABLET PO PRN (15:35)
[2017-07-24] MEDS: Ipratropium/Albuterol Neb 3 ML IH SCH ×6 (00:05→20:05)
[2017-07-24] MEDS: *HR* OxyCODONE Immed Rel 5 MG TABLET PO PRN (00:13)
[2017-07-24] MEDS: *HR* Heparin 5,000 UNIT/ML VIAL SQ SCH ×2 (05:23→16:59)
[2017-07-24 07:15] LABS: Eosinophils % 0.2 %; Hematocrit 29.3 % (37.5-50.1); Hemoglobin 9.1 g/dL (12.9-16.9); Immature Granulocytes % 0.3 % (0-4); Lymphocytes # 0.8 K/mcL (0.6-4.6); Lymphocytes % 12.6 %; Mean Corpuscular HGB Conc 31.1 g/dL (31.6-35.5); Mean Corpuscular Hemoglobin 24.5 pg (28.0-33.3); Mean Corpuscular Volume 78.8 fL (83.0-100.0); Mean Platelet Volume 10.6 fL (9.4-12.4); Monocytes # 0.9 K/mcL (0.0-1.3); Monocytes % 14.1 %; Neutrophils # 4.7 K/mcL (1.6-8.9); Platelet Count 245 K/mcL (140-400); Red Blood Count 3.72 M/mcL (4.19-5.50); Red Cell Distribution Width 21.4 % (11.5-14.5); Segmented Neutrophils % 72.8 %
[2017-07-24 07:27] LABS: BUN/Creatinine Ratio 29 (6-26); Blood Urea Nitrogen 21 mg/dL (8-23); Calcium 8.7 mg/dL (8.6-10.3); Carbon Dioxide 39 mEq/L (23-29); Chloride 96 mEq/L (98-107); Glucose 96 mg/dL (70-105); Magnesium 1.7 mg/dL (1.6-2.6); Osmolality,Calculated 293 (280-300); Phosphorous 3.3 mg/dL (2.7-4.5); Potassium 3.2 mEq/L (3.5-5.1); Sodium 140 mEq/L (136-145); eGFR For African Americans > 60 (> 60); eGFR For Non-African Americans > 60 (> 60)
[2017-07-24] MEDS: Furosemide 40 MG TABLET PO SCH ×2 (07:36→16:59)
[2017-07-24] MEDS: lamoTRIgine 25 MG TABLET PO SCH ×2 (07:36→21:53)
[2017-07-24] MEDS: *HR* Ticagrelor 90 MG TABLET PO SCH ×2 (07:36→21:53)
[2017-07-24] MEDS: Metoprolol XL (24 HR) Succ 25 MG TAB.ER.24H PO SCH (07:36)
[2017-07-24] MEDS: Thiamine (B-1) 100 MG TABLET PO SCH (07:36)
[2017-07-24] MEDS: Nicotine 14 MG PATCH.TD24 TD SCH (07:37)
[2017-07-24] MEDS: Folic Acid 1 MG TABLET PO SCH (07:37)
[2017-07-24] MEDS: Aspirin Enteric Coated 81 MG Tablet PO SCH (07:37)
[2017-07-24] MEDS: levoFLOXacin 500 MG TABLET PO SCH (07:37)
[2017-07-24] MEDS ORDERED: predniSONE 20 MG TABLET PO ONE (09:00)
--- NOTE | 2017-07-24 22:08 | Internal Med Progress Note ---
Date of Encounter: 07/25/17 Time of Encounter: 13:08 - Assessment and plan (1) Acute respiratory failure with hypoxia Current Visit: Yes Status: Acute Assessment and plan: secondary to COPD exacerbation and PNA continue PO Prednisone (Day 4) bronchodilator support O2 supplementation monitor O2 sat, goal O2 sat: 88-92% continue levaquin (Day 6/7) will continue to closely monitor respiratory status (2) Anemia Current Visit: Yes Status: Acute Assessment and plan: H&H low but acceptable no acute bleeding reported stool occult negative iron studies consistent with iron deficiency anemia continue iron supplementation will continue to closely monitor H&H Qualifiers: Anemia type: unspecified type Qualified Code(s): D64.9 - Anemia, unspecified (3) Atrial fibrillation with RVR Current Visit: Yes Status: Acute Assessment and plan: Rate controlled with BB noted to be anemic stool occult negative iron studies consistent with iron deficiency anemia, continue ferrous sulfate supplementation will defer to cardiology in regards to initiation of custodial AC (4) CHF (congestive heart failure) Current Visit: Yes Status: Acute Assessment and plan: 2D echo reported LVEF of 35% with severe global LV systolic dysfunction cardiology evaluation appreciated Lasix 40mg PO BID continue Reece inh and BB monitor I/Os daily weights fluid restriction diet Qualifiers: Heart failure type: systolic Heart failure chronicity: acute on chronic Qualified Code(s): I50.23 - Acute on chronic systolic (congestive) heart failure (5) COPD with acute exacerbation Current Visit: Yes Status: Acute Assessment and plan: as listed above (6) DVT prophylaxis Current Visit: Yes Status: Acute Assessment and plan: heparin SQ (7) H/O: CVA (cerebrovascular accident) Current Visit: Yes Status: Acute (8) Pneumonia Current Visit: Yes Status: Acute Assessment and plan: as listed above Qualifiers: Pneumonia type: due to unspecified organism Laterality: bilateral Lung location: lower lobe of lung Qualified Code(s): J18.9 - Pneumonia, unspecified organism (9) Tobacco dependence Current Visit: Yes Status: Acute Assessment and plan: smoking cessation counseling provided pt willing to quit nicotine supplementation provided (10) Alcohol abuse Current Visit: Yes Status: Chronic Assessment and plan: alcohol cessation counseling provided will monitor for signs of alcohol withdrawal monitor CIWA score ativan prn etoh withdrawal signs folate, thiamine supplementation (11) CAD (coronary artery disease) Current Visit: Yes Status: Chronic Assessment and plan: no signs of angina will continue home meds ASA, Brilinta, BB) Qualifiers: Coronary Disease-Associated Artery/Lesion type: [place] artery [place] vs. transplanted heart: [place] heart Associated angina: without angina Qualified Code(s): I25.10 - Atherosclerotic heart disease of [place] coronary artery without angina pectoris (12) Sepsis Current Visit: Yes Status: Resolved Assessment and plan: secondary to underlying PNA continue management as listed above Qualifiers: Sepsis type: sepsis due to unspecified organism Qualified Code(s): A41.9 - Sepsis, unspecified organism - Subjective Interval history: No acute events. Patient being tested for home O2 qualification today - Constitutional Vitals: Temp Pulse Resp BP Pulse Ox 97.8 F 83 16 105/68 100 07/24/17 18:38 07/24/17 18:38 07/24/17 20:05 07/24/17 18:38 07/24/17 20:05 General appearance: Present: cooperative, A&O X 3, no acute distress, answers questions appropriately - Head Head exam: Present: atraumatic, normocephalic - Eye Eye exam: Present: PERRL, conjuntiva pink, sclera anicteric Pupils: Present: PERRL - Neck Neck exam general surgery: Present: supple, trachea midline. Absent: lymphadenopathy - Respiratory Respiratory exam: Present: CTAB. Absent: accessory muscle use, rales, rhonchi, wheezes - Cardiovascular Cardiovascular exam: Present: RRR, +S1, +S2. Absent: diastolic murmur, gallop, rubs, systolic murmur - GI/Abdominal GI/Abdominal exam: Present: normal bowel sounds, soft, no peritoneal signs. Absent: distended, tenderness - Extremities Exam Extremities exam: Present: warm, radial pulses palpable and symmetrical. Absent : calf tenderness, cyanotic, pedal edema - Neurological Exam Neurological exam: Present: CN II-XII intact, oriented X3, no focal deficits. Absent: pronater drift, facial droop, speech deficit - Skin Skin exam: Present: dry, intact Internal Medicine: Result - Labs CBC & Chem 7: 07/24/17 06:39 07/24/17 06:39 Labs: Short CBC 07/24/17 Range/Units 06:39 WBC 6.5 (4.3-11.1) K/mcL Hgb 9.1 L (12.9-16.9) g/dL Hct 29.3 L (37.5-50.1) % Plt Count 245 (140-400) K/mcL Neutrophils # 4.7 (1.6-8.9) K/mcL BMP 07/24/17 06:39 Sodium 140 Potassium 3.2 L Chloride 96 L Carbon Dioxide 39 H BUN 21 Creatinine 0.72 Glucose 96 Calcium 8.7 - ABG Interpretation ABG results: PT/INR, D-dimer PT 13.6 Seconds (9.4-12.1) H 07/18/17 09:06 Consult Discharge Plan - Plan Instructions: Metoprolol (By mouth), Lisinopril (By mouth), Furosemide (By mouth), Potassium Chloride (By mouth), Nicotine (Absorbed through the skin), Atrial Fibrillation (DC) Referrals: NONE,PCP [Primary Care Provider] - (patient does want PCP, no plan staying in the city) Prescriptions: Ferrous Sulfate 325 mg PO DAILY@0800 #30 tablet Furosemide [Lasix] 40 mg PO BIDDIURETIC #60 tablet Lisinopril [Zestril] 5 mg PO DAILY #30 tablet Metoprolol XL (24 HR) Succ [Toprol Xl] 25 mg PO DAILY #30 tab.er.24h Nicotine Patch [Nicoderm] 14 mg TD DAILY #30 patch.td24 Potassium Chloride 40 meq PO DAILY #30 tab.er.prt Thiamine (B-1) [Vitamin B-1] 100 mg PO DAILY #30 tablet
[2017-07-25] MEDS: Ipratropium/Albuterol Neb 3 ML IH SCH ×5 (00:54→11:08)
[2017-07-25] MEDS: *HR* Heparin 5,000 UNIT/ML VIAL SQ SCH (06:37)
[2017-07-25 06:55] VITALS: BP 120/77
[2017-07-25] MEDS: Metoprolol XL (24 HR) Succ 25 MG TAB.ER.24H PO SCH (07:42)
[2017-07-25] MEDS: Furosemide 40 MG TABLET PO SCH (07:42)
[2017-07-25] MEDS: Thiamine (B-1) 100 MG TABLET PO SCH (07:42)
[2017-07-25] MEDS: *HR* Ticagrelor 90 MG TABLET PO SCH (07:42)
[2017-07-25] MEDS: Folic Acid 1 MG TABLET PO SCH (07:43)
[2017-07-25] MEDS: lamoTRIgine 25 MG TABLET PO SCH (07:43)
[2017-07-25] MEDS: levoFLOXacin 500 MG TABLET PO SCH (07:43)
[2017-07-25] MEDS: Nicotine 14 MG PATCH.TD24 TD SCH (07:44)
[2017-07-25] MEDS: Aspirin Enteric Coated 81 MG Tablet PO SCH (07:44)
--- NOTE | 2017-07-25 10:19 | Discharge Summary ---
Date of Encounter: 07/25/17 Time of Encounter: 10:08 - Discharge Diagnosis (1) Acute respiratory failure with hypoxia Priority: Primary Status: Acute (2) Atrial fibrillation with RVR Priority: Secondary Status: Acute (3) CHF (congestive heart failure) Priority: Secondary Status: Acute Qualifiers: Heart failure type: systolic Heart failure chronicity: acute on chronic Qualified Code(s): I50.23 - Acute on chronic systolic (congestive) heart failure (4) COPD with acute exacerbation Priority: Secondary Status: Acute (5) Pneumonia Priority: Secondary Status: Acute Qualifiers: Pneumonia type: due to unspecified organism Laterality: bilateral Lung location: lower lobe of lung Qualified Code(s): J18.9 - Pneumonia, unspecified organism (6) Alcohol abuse Priority: Secondary Status: Chronic (7) CAD (coronary artery disease) Priority: Secondary Status: Chronic Qualifiers: Coronary Disease-Associated Artery/Lesion type: [place] artery [place] vs. transplanted heart: [place] heart Associated angina: without angina Qualified Code(s): I25.10 - Atherosclerotic heart disease of [place] coronary artery without angina pectoris (8) Sepsis Priority: Secondary Status: Resolved Qualifiers: Sepsis type: sepsis due to unspecified organism Qualified Code(s): A41.9 - Sepsis, unspecified organism - Discharge Medications Prescriptions: Ferrous Sulfate 325 mg PO DAILY@0800 #30 tablet Furosemide [Lasix] 40 mg PO BIDDIURETIC #60 tablet Lisinopril [Zestril] 5 mg PO DAILY #30 tablet Metoprolol XL (24 HR) Succ [Toprol Xl] 25 mg PO DAILY #30 tab.er.24h Nicotine Patch [Nicoderm] 14 mg TD DAILY #30 patch.td24 Potassium Chloride 40 meq PO DAILY #30 tab.er.prt Thiamine (B-1) [Vitamin B-1] 100 mg PO DAILY #30 tablet Home Medications: ALPRAZolam [Xanax 0.5 MG Tablet] 0.5 mg PO BID 07/17/17 [History] Escitalopram [Lexapro] 20 mg PO DAILY 07/17/17 [History] Fludrocortisone Acetate [Florinef] 0.1 mg PO DAILY 07/17/17 [History] Midodrine [ProAmatine] 10 mg PO BID 07/17/17 [History] Ticagrelor [Brilinta] 90 mg PO BID 07/17/17 [History] lamoTRIgine [Lamictal] 75 mg PO BID 07/17/17 [History] Ferrous Sulfate 325 mg PO DAILY@0800 #30 tablet 07/25/17 [Rx] Folic Acid 1 mg PO DAILY tablet 07/25/17 [Rx] Furosemide [Lasix] 40 mg PO BIDDIURETIC #60 tablet 07/25/17 [Rx] Lisinopril [Zestril] 5 mg PO DAILY #30 tablet 07/25/17 [Rx] Metoprolol XL (24 HR) Succ [Toprol Xl] 25 mg PO DAILY #30 tab.er.24h 07/25/17 [ Rx] Nicotine Patch [Nicoderm] 14 mg TD DAILY #30 patch.td24 07/25/17 [Rx] Potassium Chloride 40 meq PO DAILY #30 tab.er.prt 07/25/17 [Rx] Thiamine (B-1) [Vitamin B-1] 100 mg PO DAILY #30 tablet 07/25/17 [Rx] Allergies/Adverse Reactions: 3 Allergy/AdvReac Type Severity Reaction Status Date / Time No Known Allergies Allergy Verified 07/17/17 23:11 Date of admission: 07/18/17 05:08 Primary care physician: PCP NONE Consults: 07/18/17 11:18 Consult to Staff Attorney [CONS] Routine Reason for SW Consult: patient living in [facility], no transport. 07/22/17 15:20 Consult to Occupational Therapy [CONS] Stat Comment: Evaluate, develop and implement POC Reason for Consult: discharge needs Consult to Physical Therapy [CONS] Stat Comment: Evaluate, develop and implement POC Reason for Consult: discharge needs Discharging clinician: Eliceo Canales - Patient Status Disposition: Home, Self-Care Condition: Undetermined Functional capacity at discharge: independent ambulation Overall status at discharge: patient is progressing back to baseline - Discharge Instructions Follow Up With: NONE,PCP [Primary Care Provider] - (patient does want PCP, no plan staying in the city) - Diet and Activity Activity: increase activity as tolerated Diet: low fat, low cholesterol, low salt diet Hospital course: Mr. Carmen is a 62 year old male with known PMH of CAD s/p stents x 7, CVA x2, Esophageal Ca, Throat cancer recently finished chemo therapy, who also had s/p AAA repair, pt presented as a transfer from [place] [facility] with four-day history of fever, chills, cough, difficulty breathing with sputum and wheezing. While he was in the ER, he went into A fib with RVR which got converted to NSR right away with Cardizem bolus + short duration of cardizem gtt + Digoxin. Pt happened to have b/l pneumonia for which he received IV abx and transferred to our hospital for further care. He was admtted to telemetry floor. He met sepsis criteria and started on Vancomycin, Levaquin and Cefepime. He also treated for COPD exacerbation with steroids and acute on chronic systolic heart failure. Cardiology consulted he had . he was diuresed with IV lasix. Patient CHADS VASc score is 4. Patient had significant anemia and it is unclear if it i acute or chronic though he has no known history of bleeding he does have a reported history of esophageal cancer. He was started on iron supplementation. He completed steroid therapy and Levaquin. Patient improved significantly and was hemodynamicallly stable prior to discharge. He qualified for home O2 on discharge. - Time Spent with Patient Total time spent providing and/or coordinating discharge services: - Constitutional Vitals: Temp Pulse Resp BP Pulse Ox 98.8 F 81 18 120/77 100 07/25/17 06:51 07/25/17 06:51 07/25/17 07:48 07/25/17 06:51 07/25/17 07:48 General appearance: Present: cooperative, A&O X 3, no acute distress, answers questions appropriately - Head Head exam: Present: atraumatic, normocephalic - Eye Eye exam: Present: PERRL, conjuntiva pink, sclera anicteric Pupils: Present: PERRL - Neck Neck exam general surgery: Present: supple, trachea midline. Absent: lymphadenopathy - Respiratory Respiratory exam: Present: CTAB. Absent: accessory muscle use, rales, rhonchi, wheezes - Cardiovascular Cardiovascular exam: Present: RRR, +S1, +S2. Absent: diastolic murmur, gallop, rubs, systolic murmur - GI/Abdominal GI/Abdominal exam: Present: normal bowel sounds, soft, no peritoneal signs. Absent: distended, tenderness - Extremities Exam Extremities exam: Present: warm, radial pulses palpable and symmetrical. Absent : calf tenderness, cyanotic, pedal edema - Neurological Exam Neurological exam: Present: CN II-XII intact, oriented X3, no focal deficits. Absent: pronater drift, facial droop, speech deficit - Skin Skin exam: Present: dry, intact
== END 2017-07-25 13:34 | disposition home or self-care (01) | DRG 871 ==
LOC: 2ANU
PROVIDERS: ADMIT Family Medicine; ATTEND Internal Medicine